=== PATIENT | female | born 2000 | race Caucasian/White ===

== ENCOUNTER 2019-05-25 03:28 | Inpatient (IN) ==
[2019-05-25] MEDS ORDERED: 0.9 % Sodium Chloride 1,000 ML IVC SCH (07:30)
[2019-05-25] MEDS ORDERED: Ketorolac 30 MG/ML VIAL IVP ONE (09:09)
[2019-05-25] MEDS: Ondansetron 4 MG/2 ML VIAL IVP PRN (11:07)
[2019-05-25] MEDS ORDERED: Albuterol 2.5 MG/3 ML NEBULIZER IH PRN (13:17)
[2019-05-25] MEDS ORDERED: *HR* Promethazine 25 MG/ML VIAL IVP PRN (13:17)
[2019-05-25] MEDS ORDERED: *HR* HYDROmorphone PF 0.5 MG/0.5 ML SYRINGE IVP PRN (13:17)
[2019-05-25] MEDS ORDERED: *HR* OxyCODONE Immed Rel 5 MG TABLET PO PRN (13:17)
[2019-05-25] MEDS ORDERED: Ondansetron 4 MG/2 ML VIAL IVP ONE (13:17)
[2019-05-25] MEDS ORDERED: *HR* Propofol 200 MG/20 ML VIAL IVP ONE (13:21)
[2019-05-25] MEDS ORDERED: *HR* FentaNYL (PF) 100 MCG/2 ML VIAL ONE (13:21)
[2019-05-25] MEDS ORDERED: *HR* Midazolam HCl 2 MG/2 ML VIAL ONE (13:21)
[2019-05-25] MEDS ORDERED: Lidocaine -MPF 2% 2 ML VIAL ONE (13:24)
[2019-05-25] MEDS ORDERED: Lidocaine -MPF 4% 5 ML AMPUL ONE (13:24)
[2019-05-25] MEDS ORDERED: *HR* Rocuronium Bromide 50 MG/5 ML VIAL ONE (13:24)
[2019-05-25] MEDS ORDERED: Dexamethasone 4 MG/ML VIAL ONE (13:45)
[2019-05-25] MEDS ORDERED: Ondansetron 4 MG/2 ML VIAL ONE (13:45)
[2019-05-25] MEDS ORDERED: Indomethacin 50 MG SUPP.RECT RC ONE (14:08)
[2019-05-25] MEDS ORDERED: Neostigmine Methylsulfate 3 MG/3 ML SYRINGE ONE (14:15)
[2019-05-25] MEDS ORDERED: Glycopyrrolate 0.2 MG/ML VIAL ONE (14:25)
[2019-05-25] MEDS ORDERED: Ringers Solution, Lactated 1,000 ML ONE (14:45)
[2019-05-26 01:43] LABS: Basophils % 0.3 %; Eosinophils % 0.2 %; Hemoglobin 12.9 g/dL (11.5-15.4); Immature Granulocytes % 0.2 % (0-4); Lymphocytes # 1.5 K/mcL (0.6-4.6); Lymphocytes % 15.7 %; Mean Corpuscular HGB Conc 33.1 g/dL (31.6-35.5); Mean Corpuscular Hemoglobin 28.9 pg (28.0-33.3); Mean Corpuscular Volume 87.2 fL (83.0-100.0); Mean Platelet Volume 9.7 fL (9.4-12.4); Monocytes # 0.9 K/mcL (0.0-1.3); Monocytes % 9.5 %; Neutrophils # 6.9 K/mcL (1.6-8.9); Platelet Count 354 K/mcL (140-400); Red Blood Count 4.47 M/mcL (3.82-4.97); Red Cell Distribution Width 12.7 % (11.5-14.5); Segmented Neutrophils % 74.1 %; White Blood Count 9.4 K/mcL (4.3-11.1)
[2019-05-26 02:03] LABS: Alanine Aminotransferase 201 Units/L (7-52); Albumin 3.7 g/dL (3.5-5.7); Albumin/Globulin Ratio 1.5 (1.1-2.2); Alkaline Phosphatase 86 Units/L (34-104); Aspartate Amino Transferase 63 Units/L (13-39); BUN/Creatinine Ratio 9 (6-26); Bilirubin,Total 5.4 mg/dL (0.3-1.0); Blood Urea Nitrogen 6 mg/dL (6-20); Carbon Dioxide 21 mEq/L (23-29); Chloride 105 mEq/L (98-107); Cholesterol 154 mg/dL (< 200); Globulin 2.5 g/dL (2.4-3.5); Glucose 89 mg/dL (70-105); HDL Cholesterol 31 mg/dL (40-59); LDL Cholesterol,Calculated 113 mg/dL (0-99); Osmolality,Calculated 277 (280-300); Potassium 3.9 mEq/L (3.5-5.1); Sodium 135 mEq/L (136-145); Total Protein 6.2 g/dL (6.4-8.9); Triglycerides 52 mg/dL (< 150); eGFR For African Americans > 60; eGFR For Non-African Americans > 60
[2019-05-26] MEDS ORDERED: Acetaminophen/Butalbital/CaffeineTABLET PO ONE (10:07)
[2019-05-26] MEDS: Ondansetron 4 MG/2 ML VIAL IVP PRN (21:36)
[2019-05-27 07:39] VITALS: BP 113/72
[2019-05-27 09:00] LABS: Alanine Aminotransferase 226 Units/L (7-52); Albumin 3.9 g/dL (3.5-5.7); Albumin/Globulin Ratio 1.6 (1.1-2.2); Alkaline Phosphatase 83 Units/L (34-104); Aspartate Amino Transferase 97 Units/L (13-39); BUN/Creatinine Ratio 18 (6-26); Bilirubin,Total 2.5 mg/dL (0.3-1.0); Blood Urea Nitrogen 11 mg/dL (6-20); Carbon Dioxide 19 mEq/L (23-29); Chloride 105 mEq/L (98-107); Globulin 2.5 g/dL (2.4-3.5); Glucose 62 mg/dL (70-105); Osmolality,Calculated 281 (280-300); Potassium 3.7 mEq/L (3.5-5.1); Sodium 137 mEq/L (136-145); Total Protein 6.4 g/dL (6.4-8.9); eGFR For African Americans > 60; eGFR For Non-African Americans > 60
== END 2019-05-27 11:54 | disposition home or self-care (01) ==
LOC: 3BNU → SUATTDRO 15:01
PROVIDERS: ADMIT Internal Medicine; ATTEND Internal Medicine